=== PATIENT | male | born 1975 | race Hispanic/Latino ===

== ENCOUNTER 2020-04-01 10:34 | Emergency (ER) | payer SELFPAY ==
[2020-04-01 10:40] VITALS: BP 165/86; PULSE 87; RESP 14; TEMP 36.7; O2SAT 99; BMI 29.0
--- NOTE | 2020-04-01 11:03 | ED_ITS ---
HPI - Male Genitourinary <KENJI Mckay - Last Filed: 04/01/20 13:23> General Chief complaint: Urogenital-Male Stated complaint: UTI symptoms Time Seen by Provider: 04/01/20 10:45 Source: patient Mode of arrival: Ambulatory Limitations: language barrier History of Present Illness HPI Narrative: This is a 44 year male, smoker, has past medical history significant for left inguinal hernia presents to ED with here 2 weeks of urinary burning sensation and frequency which became worse for last 3 days. He reports worsening burning sensation with urination and right-sided suprapubic discomfort. Patient denies scrotal/testicular pain, swelling, warmth, unusual penile discharge, other abdominal pain, nausea, vomiting, fever, chills, or back pain. Patient noticed his urination stream became weaker for about a month and decreased amount of urination. Patient denies chest pain, dyspnea, generalized body swelling. Patient reports he is heterosexual but has not been sexually ac tive for last 4 years and had 1 partner and is not concerned for STIs and denies history of STIs. Related Data Allergies Allergy/AdvReac Type Severity Reaction Status Date / Time No Known Drug Allergies Allergy Verified 04/01/20 10:45 Review of Systems <KENJI Mckay - Last Filed: 04/01/20 13:23> Review of Systems Narrative: General: Denies fever, chills, fatigue, malaise, sweats. HEENT: Denies sinus pain, ear pain, sore throat, difficulty swallowing, dizziness. Respiratory: Denies dyspnea, cough, wheezing, hemoptysis, sputum. Cardiovascular: Denies chest pain, palpitations, orthopnea, edema. Gastrointestinal: Denies nausea, vomiting, abdominal pain, diarrhea, constipation, melena. : See HPI Musculoskeletal: Denies weakness, joint pain or bony pain. Neurologic: Denies weakness, headache, numbness, change in speech, confusion, seizures, incoordination. Patient History <KENJI Mckay - Last Filed: 04/01/20 13:23> Medical History Inguinal hernia Social History Smoking Status: Never smoker Smoking Status: Never smoker alcohol intake frequency: holidays/special occasions only Substance Use Type: does not use Exam <Angel Jose LuisKENJI hood - Last Filed: 04/01/20 13:23> Narrative Exam Narrative: General appearance: well developed, well nourished, in no acute distress. Head: normocephalic, atraumatic, no scalp lesions, non-tender. ENT: Hearing grossly intact. Nose without bleeding, purulent discharge. Mucous membrane moist, no mucosal lesion. Throat without erythema, tonsillar hypertrophy or exudate. Uvula in midline, airway patent. Neck/Thyroid: neck supple, full range of motion, no visible masses or meningeal signs. No JVD, non-tender without lymphadenopathy. Skin: no suspicious rashes, lesions over visible areas. Warm and dry and appropriate color for ethnicity. Heart: no clubbing, no cyanosis, no edema. S1 and S2 normal. RRR w/o murmurs, clicks, or bruits, no edema. Lungs: Breathing even and unlabored. No stridor. No accessory muscles used. Able to speak in full sentences. Chest: normal shape and expansion. Abdomen: non-obese, non-distended, nontender to palpate. Positive bowel sounds in all quadrant. Neurologic: alert and oriented. Cognitive exam, [employer] and PNS grossly intact on informal exam. Psych: good eye contact, normal affect. Initial Vital Signs Initial Vital Signs: Vital Signs Temperature 98.0 F 04/01/20 10:40 Pulse Rate 87 04/01/20 10:40 Respiratory Rate 14 04/01/20 10:40 Blood Pressure 165/86 H 04/01/20 10:40 Pulse Oximetry 99 04/01/20 10:40 <Leann Ocampo DO - Last Filed: 04/01/20 19:47> Initial Vital Signs Initial Vital Signs: Vital Signs Temperature 98.0 F 04/01/20 10:40 Pulse Rate 87 04/01/20 10:40 Respiratory Rate 14 04/01/20 10:40 Blood Pressure 165/86 H 04/01/20 10:40 Pulse Oximetry 99 04/01/20 10:40 Scores <Angel Jose LuisKENJI hood - Last Filed: 04/01/20 13:23> GCS [place] coma scale eye opening: Spontaneous Sajan coma scale verbal response: Orientated Sajan coma scale motor response: Obey commands Sajan coma scale total score: 15 qSOFA Altered Mental Status (GCS <15): No Respiratory rate greater than/equal to 22: No Systolic blood pressure less than or equal to 100: No qSOFA Total: 0 0-1 Not High Risk 1-3 High risk Course <Angel Adkins EDGER FEEDER - Last Filed: 04/01/20 13:23> Orders Ordered: ED Orders 04/01/20 11:02 Urine Microscopic Stat 04/01/20 11:55 Basic Metabolic Panel Stat Complete Blood Count AUTO DIFF Stat Vital Signs Vital signs: Vital Signs - 8 hr 04/01/20 12:31 Pulse Rate 61 Respiratory Rate 16 Blood Pressure 144/88 H Pulse Oximetry 100 <Leann Ocampo DO - Last Filed: 04/01/20 19:47> Orders Ordered: ED Orders 04/01/20 11:02 Urine Microscopic Stat 04/01/20 11:55 Basic Metabolic Panel Stat Complete Blood Count AUTO DIFF Stat Vital Signs Vital signs: Vital Signs - 8 hr 04/01/20 12:31 Pulse Rate 61 Respiratory Rate 16 Blood Pressure 144/88 H Pulse Oximetry 100 MDM - Male Genitourinary <Angel Adkins [facility] - Last Filed: 04/01/20 13:23> Differential Diagnosis Differential diagnosis: Likely urinary tract infection and other (BPH, renal stone, STIs) Medical Records Attestation: I reviewed the patient's medical records. Lab Data Attestation: I reviewed the patient's lab results. Result diagrams: 04/01/20 11:55 04/01/20 11:55 Labs: Lab Results 04/01/20 04/01/20 04/01/20 Range/Units 11:02 11:55 11:55 WBC 9.4 (4.5-11.0) X10^3/uL RBC 5.03 (4.5-5.9) X10^6/uL Hgb 14.5 (13.5-17.5) g/dL Hct 44.7 (41-53) % MCV 88.8 (80-100) fL MCH 28.9 (26-34) PG MCHC 32.5 (30-36) % RDW 13.2 (11.6-14.8) % Plt Count 267 (150-400) X10^3/uL Neut % (Auto) 73.7 (50-75) % Lymph % (Auto) 18.1 L (25-40) % [place] % (Auto) 6.4 (3-14) % Eos % (Auto) 1.5 L (2-4) % Baso % (Auto) 0.3 (0-2) % Neut # (Auto) 6900 (1895-3323) /uL Lymph # (Auto) 1700 (1794-4496) /uL [place] # (Auto) 600 (0-900) /uL Eos # (Auto) 100 (0-450) /uL Baso # (Auto) 0 (0-100) /uL Sodium 140 (137-145) mmol/L Potassium 4.6 (3.4-5.1) mmol/L Chloride 105 (98-107) mmol/L Carbon Dioxide 29 (22-32) mmol/L BUN 14 (9-20) mg/dL Creatinine 0.84 (0.66-1.25) mg/dL Estimated GFR > 60.0 (>60) mL/min BUN/Creatinine Ratio 16.7 (6-22) Glucose 113 H (70-100) mg/dL Calcium 9.3 (8.4-10.2) mg/dL Urine RBC 0-1/hpf (0-5/HPF) Urine WBC 1-5/hpf (0-5/HPF) Ur Squamous Epith Cells 1-5 /hpf (0-5/HPF) Urine Bacteria None seen (None) Ur Culture Indicated? Cult not indicated Urine Dip Bedside Urine Glucose Negative Bedside Urine Bilirubin - Negative Urine Specific [place] 1.015 Bedside Urine Occult Blood - Negative Bedside Urine Protein - Negative Bedside Urine Urobilinogen - Negative Bedside Urine Nitrite - Negative Bedside Urine Leukocytes + 70 Esterase MDM Narrative Medical decision making narrative: This is a 44 year male speaks Latvian and we used language line to communicate. He presents to ED with burning with urination and urinary frequency. Patient does not endorses constitutional symptoms. Urine test positive for leuks but microscopic UA without bacteria and urine WBC 1-5/hpf and epithelial cells of 1-5/hph. Urine culture ordered and is pending. Physical exam was unremarkable. Patient is afebrile with slight hypertensive. Given no obvious urinary tract infection indication, labs were ordered to check kidney function test and CBC. Labs are assuring. Normal kidney function test. It is likely patient starting to have enlarged prostate which should be followed with PCP. [facility] phone number provided for patient to elect PCP and follow-up with further evaluation. GC chlamydia urine test added to rule out other infectious etiology. Return precautions were discussed with patient and he verbalized understanding in agreement with the treatment plan. <Leann Ocampo, DO - Last Filed: 04/01/20 19:47> Lab Data Labs: Lab Results 04/01/20 04/01/20 04/01/20 Range/Units 11:02 11:55 11:55 WBC 9.4 (4.5-11.0) X10^3/uL RBC 5.03 (4.5-5.9) X10^6/uL Hgb 14.5 (13.5-17.5) g/dL Hct 44.7 (41-53) % MCV 88.8 (80-100) fL MCH 28.9 (26-34) PG MCHC 32.5 (30-36) % RDW 13.2 (11.6-14.8) % Plt Count 267 (150-400) X10^3/uL Neut % (Auto) 73.7 (50-75) % Lymph % (Auto) 18.1 L (25-40) % [place] % (Auto) 6.4 (3-14) % Eos % (Auto) 1.5 L (2-4) % Baso % (Auto) 0.3 (0-2) % Neut # (Auto) 6900 (7003-7479) /uL Lymph # (Auto) 1700 (2098-8297) /uL [place] # (Auto) 600 (0-900) /uL Eos # (Auto) 100 (0-450) /uL Baso # (Auto) 0 (0-100) /uL Sodium 140 (137-145) mmol/L Potassium 4.6 (3.4-5.1) mmol/L Chloride 105 (98-107) mmol/L Carbon Dioxide 29 (22-32) mmol/L BUN 14 (9-20) mg/dL Creatinine 0.84 (0.66-1.25) mg/dL Estimated GFR > 60.0 (>60) mL/min BUN/Creatinine Ratio 16.7 (6-22) Glucose 113 H (70-100) mg/dL Calcium 9.3 (8.4-10.2) mg/dL Urine RBC 0-1/hpf (0-5/HPF) Urine WBC 1-5/hpf (0-5/HPF) Ur Squamous Epith Cells 1-5 /hpf (0-5/HPF) Urine Bacteria None seen (None) Ur Culture Indicated? Cult not indicated Urine Dip Bedside Urine Glucose Negative Bedside Urine Bilirubin - Negative Urine Specific [place] 1.015 Bedside Urine Occult Blood - Negative Bedside Urine Protein - Negative Bedside Urine Urobilinogen - Negative Bedside Urine Nitrite - Negative Bedside Urine Leukocytes + 70 Esterase Discharge Plan Departure Patient Disposition: Home Clinical Impression: Dysuria Instructions: DI for Dysuria -- Adult Activity Restrictions/Additional Instructions: You have been diagnosed with [dysuria which means burning with urination or discomfort. No obvious indications for urine infection at this time but your urine is being cultured at this time. You will receive a phone call if requires antibiotic medication. Labs are assuring. No decreased kidney function test.]. What to do: *Take your medications as directed. Hydrate well. *Follow up with your primary care provider in 2-3 days, call for an appointment. Let them know you were seen in the ED and that we asked you to be seen in follow up. You may have have enlarged prostate which should be followed up with her doctor. *Return to ED if you have any new, worsening, or concerning symptoms, such as [fever, worsening pain, chest pain, breathing difficulty, back pain, unable to tolerate fluids, or any acute concerns]. Referrals: [facility] [Outside] <Leann Ocampo DO - Last Filed: 04/01/20 19:47> [facility] Attending Ramon Attestation: I was immediately available in the department for consultation. Documentation has been reviewed. I agree with assessment and plan.
[2020-04-01 11:15] LABS: Bacteria Urine None Seen
[2020-04-01 11:31] LABS: Culture Indicated Urine Cult Not Indicated; RBC Urine 0-1/HPF (0-5/HPF); Squamous Epithelial Cell Urine 1-5 /HPF (0-5/HPF); WBC Urine 1-5/HPF (0-5/HPF)
[2020-04-01 12:04] LABS: Add Manual Diff / Slide Review NO; Basophils Absolute Auto 0 /uL (0-100); Basophils Percent Auto 0.3 % (0-2); Eosinophils Absolute Auto 100 /uL (0-450); Eosinophils Percent Auto 1.5 % (2-4); Hematocrit 44.7 % (41-53); Hemoglobin 14.5 g/dL (13.5-17.5); Lymphocytes Absolute Auto 1700 /uL (1100-4500); Lymphocytes Percent Auto 18.1 % (25-40); Mean Corpuscular HGB Conc 32.5 % (30-36); Mean Corpuscular Hemoglobin 28.9 PG (26-34); Mean Corpuscular Volume 88.8 fL (80-100); Monocytes Absolute Auto 600 /uL (0-900); Monocytes Percent Auto 6.4 % (3-14); Neutrophils Absolute Auto 6900 /uL (1500-7000); Neutrophils Percent Auto 73.7 % (50-75); Platelet Count 267 X10^3/uL (150-400); Red Blood Cell Count 5.03 X10^6/uL (4.5-5.9); Red Cell Distribution Width 13.2 % (11.6-14.8); White Blood Cell Count 9.4 X10^3/uL (4.5-11.0)
[2020-04-01 12:14] LABS: BUN Creatinine Ratio 16.7 (6-22); Blood Urea Nitrogen 14 mg/dL (9-20); Calcium 9.3 mg/dL (8.4-10.2); Carbon Dioxide 29 mmol/L (22-32); Chloride 105 mmol/L (98-107); Estimated Glomerular Filt Rate > 60.0 mL/min (>60); Glucose 113 mg/dL (70-100); HEMOLYSIS < 15 (0-50); Potassium 4.6 mmol/L (3.4-5.1); Sodium 140 mmol/L (137-145)
[2020-04-01 12:31] VITALS: BP 144/88; PULSE 61; RESP 16; O2SAT 100
[2020-04-04 04:14] LABS: Chlamydia trachomatis NAA Positive (Negative); Neisseria gonorrhoeae NAA Negative (Negative)
== END 2020-04-01 12:41 | disposition home or self-care (01) ==
PROVIDERS: Emergency Provider Nurse Practitioner Family
DX: R30.0 Dysuria (principal)
CPT/HCPCS: 36415; 80048; 81003; 81015; 85025; 87491; 87591; 99283